=== PATIENT | female | born 1930 | race Two or more races ===

== ENCOUNTER 2018-03-21 20:57 | Inpatient (IN) | payer MEDICARE, BC ==
[~2018-03-21] VITALS: Ht 170.2 cm; Wt 74.4 kg
--- NOTE | 2018-03-21 21:08 | NUR ---
PT BIB [facility] WITH A C/O SLIP AND FALL AT HOME. PT WAS WALKING IN HER SOCKS AND SLIPED. PT'S CALLED 911 AND PT REC'D 4MG MORPHINE AND 4MG ZOFAN GIVEN VIA 20G IV RECREATION INSTRUCTOR. PT TRIAGED IN BED #9. PT IS ON THE MONITOR AND CONTINUOUS PULSE OX.
[2018-03-21] MEDS ORDERED: METF-440 PO (21:14)
[2018-03-21] MEDS ORDERED: COZAR PO (21:15)
[2018-03-21] MEDS ORDERED: ASPI-605 PO (21:17)
[2018-03-21] MEDS ORDERED: [UNRECOGNIZED DRUG - OTHER] PO (21:17)
[2018-03-21] MEDS ORDERED: IV NS 0.9% 500 ML BAG IV ONE (21:30)
[2018-03-21 21:33] LABS: BASOPHILS % (AUTO) 0.3 % (0.0-2.0); EOSINOPHILS % (AUTO) 6.7 % (0.0-6.0); HEMATOCRIT 38 % (33-45); LYMPHOCYTES # (AUTO) 1.1 /CMM (0.8-4.8); LYMPHOCYTES % (AUTO) 22.1 % (20.0-44.0); MEAN CORPUSCULAR HGB CONC 34 g/dl (31.0-36.0); MEAN CORPUSCULAR VOLUME 93 fL (82-100); MONOCYTES # (AUTO) 0.6 /CMM (0.1-1.30); MONOCYTES % (AUTO) 12.2 % (2.0-12.0); NEUTROPHILS # (AUTO) 3.2 /CMM (1.8-8.9); NEUTROPHILS % (AUTO) 58.7 % (43.0-81.0); PLATELET COUNT (AUTO) 185 /CMM (150-450); RED BLOOD CELL COUNT(AUTO) 4.12 MIL/uL (4.0-5.2); WHITE BLOOD COUNT (AUTO) 5.2 K/uL (4.3-11.0)
--- NOTE | 2018-03-21 21:38 | NUR ---
PT'S ARRIVED AND IS AT THE BEDSIDE.
[2018-03-21 21:43] LABS: CALCIUM, SERUM 8.9 mg/dL (8.5-10.1); CARBON DIOXIDE 25 mmol/L (21-32); CHLORIDE 104 mmol/L (98-107); GLUCOSE 209 mg/dL (74-106); POTASSIUM 4.4 mmol/L (3.5-5.1); SODIUM SERUM 136 mmol/L (136-145); UREA NITROGEN, BLOOD 25 mg/dL (7-18)
[2018-03-21 21:48] LABS: INR 0.99 (0.85-1.15)
[2018-03-21 21:49] LABS: ALANINE AMINOTRANSFERASE 14 U/L (12-78); ALBUMIN 3.2 g/dL (3.4-5.0); ALKALINE PHOSPHATASE 71 U/L (46-116); ASPARTATE AMINOTRANSFERASE 12 U/L (15-37); BILIRUBIN,DIRECT 0.1 mg/dL (0.0-0.2); BILIRUBIN,TOTAL 0.4 mg/dL (0.2-1.0); TOTAL PROTEIN, SERUM 7.2 g/dL (6.4-8.2)
--- NOTE | 2018-03-21 22:00 | NUR ---
CXR IN PROGRESS AT THE BEDSIDE.
[2018-03-21] MEDS ORDERED: ONDANSETRON HCL/PF 4 MG/2 ML VIAL ONE (22:10)
[2018-03-21] MEDS ORDERED: MORPHINE SULFATE INJ 4 MG/ML DISP.SYRIN ONE ×2 (22:11→23:02)
--- NOTE | 2018-03-21 22:12 | NUR ---
CALLED [employer] TYSON, FARM TECHNICIAN WAS PAGED.
[2018-03-21] MEDS ORDERED: ONDANSETRON HCL/PF 4 MG/2 ML VIAL IV ONE (22:30)
[2018-03-21] MEDS ORDERED: MORPHINE SULFATE INJ 4 MG/ML DISP.SYRIN IV ONE (22:30)
[2018-03-21] MEDS ORDERED: MORPHINE SULFATE INJ 2 MG/ML DISP.SYRIN IV ONE (23:00)
--- NOTE | 2018-03-21 23:16 | NUR ---
CALLED [employer] (Closed) SKEIN YARN DYER WAS PAGED.
[2018-03-21 23:45] VITALS: BP 195/89
[2018-03-22] MEDS ORDERED: ONDANSETRON HCL/PF 4 MG/2 ML VIAL IVP PRN
[2018-03-22] MEDS ORDERED: Z GUARD REMEDY 2 OZ OINT TP PRN
[2018-03-22] MEDS ORDERED: HYDROCODONE/APAP 5/325MG 1 EACH TABLET PO PRN
[2018-03-22] MEDS ORDERED: ZOLPIDEM TARTRATE 5 MG TABLET PO PRN
[2018-03-22] MEDS ORDERED: DEXTROSE 50%-WATER 50 ML DISP.SYRIN IV PRN
[2018-03-22] MEDS ORDERED: ACETAMINOPHEN 325 MG TABLET PO PRN
[2018-03-22] MEDS ORDERED: MAGNESIUM HYDROXIDE 30 ML UDC PO PRN
[2018-03-22 00:15] VITALS: BP 195/89
--- NOTE | 2018-03-22 00:15 | NUR ---
MS RN ADMIN NOTES PT WAS BROUGHT UP FROM ER VIA GURNEY. A/O X3, LEGALLY BLIND AND [place]. NO SIGNS OF SOB OR DISTRESS, BREATHING EVENLY AND UNLABORED ON RA, PLACED NC FOR COMFORT. BURLESON CATHETER IS INTACT AND DRAINING. IV ACCESS IS INTACT AND PATENT. RIGHT LEG IS ROTATED SLIGHTLY INWARD. PT IS UNABLE TO MOVE RIGHT LIGHT AND REFUSES TO BE TURNED FOR A SKIN ASSESSMENT. STRONG PEDAL PULSES, PT HAS SENSATION IN LOWER EXTREMITY, STRONG PEDAL PULSES AND ABLE TO WIGGLE TOES. COMPLAINTS OF PAIN 5/10 AT THIS TIME,ADVISED PATIENT OF THE PAIN CONTROL REGIMEN AVAILABLE FOR HER. ORIENTED PT TO CALL LIGHT. BED IS IN LOW AND LOCKED POSITION, CALL LIGHT WITHIN REACH. WILL CONTINUE TO MONITOR
[2018-03-22] MEDS: BLOOD SUGAR DIAGNOSTIC 1 EACH STRIP IN SCH ×5 (00:59→23:39)
[2018-03-22] MEDS: MORPHINE SULFATE INJ 4 MG/ML DISP.SYRIN IV PRN ×4 (01:24→18:25)
[2018-03-22] MEDS: hydrALAZINE HCL IV 20 MG VIAL IV PRN (03:23)
[2018-03-22 06:32] LABS: BASOPHILS % (AUTO) 0.2 % (0.0-2.0); HEMATOCRIT 38 % (33-45); HEMOGLOBIN 12.9 g/dL (11.5-14.8); LYMPHOCYTES % (AUTO) 13.6 % (20.0-44.0); MEAN CORPUSCULAR HGB CONC 34 g/dl (31.0-36.0); MEAN CORPUSCULAR VOLUME 94 fL (82-100); MONOCYTES # (AUTO) 0.7 /CMM (0.1-1.30); MONOCYTES % (AUTO) 8.7 % (2.0-12.0); NEUTROPHILS # (AUTO) 5.8 /CMM (1.8-8.9); NEUTROPHILS % (AUTO) 76.5 % (43.0-81.0); PLATELET COUNT (AUTO) 179 /CMM (150-450); RDW COEFFICIENT OF VARIATION 13.8 (11.5-15.0); RED BLOOD CELL COUNT(AUTO) 4.06 MIL/uL (4.0-5.2); WHITE BLOOD COUNT (AUTO) 7.6 K/uL (4.3-11.0)
[2018-03-22 06:37] LABS: CHOLESTEROL 188 mg/dL (<200); HDL CHOLESTEROL 43 mg/dL (40-60); LDL 136 mg/dL (0-99); TRIGLYCERIDES 48 mg/dL (30-150)
[2018-03-22 06:43] LABS: CALCIUM, SERUM 8.6 mg/dL (8.5-10.1); CARBON DIOXIDE 26 mmol/L (21-32); CHLORIDE 102 mmol/L (98-107); CREATININE 0.8 mg/dL (0.6-1.3); GLUCOSE 199 mg/dL (74-106); MAGNESIUM 1.8 mg/dL (1.8-2.4); POTASSIUM 4.2 mmol/L (3.5-5.1); SODIUM SERUM 136 mmol/L (136-145); UREA NITROGEN, BLOOD 18 mg/dL (7-18)
--- NOTE | 2018-03-22 06:51 | NUR ---
MS RN CLOSING NOTE PT IS IN BED AWAKE AND ALERT. PT HAS NOW BECOME FRUSTRATED AND FORGETFUL THIS MORNING. SHE REFUSED ACCU-CHECK AFTER MANY ATTEMPTS THEN FORGOT ABOUT THE ATTEMPTS I HAD MADE PRIOR. PT STATES SHE IS IN PAIN, I OFFERED TO GET HER THE MORPHINE FOR HER AND SHE REFUSED IT STATING THAT SHE DOESN'T KNOW WHY SHE IS HERE AND IS UPSET ASKING WHEN IS THE DOCTOR GOING TO COME SEE HER. PENDING ORTHO CONSULT. IV ACCESS IS INTACT AND PATENT WITH FLUIDS INFUSING. BURLESON CATHETER IS INTACT AND DRAINING. ALL NEEDS WERE ANTICIPATED AND MET. BED IS IN LOW AND LOCKED POSITION, CALL LIGHT WITHIN REACH. WILL ENDORSE TO DAYSHIFT.
--- NOTE | 2018-03-22 07:32 | NUR ---
MS/RN OPENING NOTES RECEIVED PATIENT IN BED AWAKE, ALERT AND ORIENTED X3. ABLE TO MAKE NEEDS KNOWN, NO C/O PAIN OR DISCOMFORTS VOICED AT THIS TIME. ON 02 VIA N/C AT 2LPM, RESPIRATION REGULAR AND UNLABORED, NO SOB NOTED. IV ACCESS ON RIGHT FA G #20 INTACT AND PATENT., IVF OF NS @ 75ML/HR INFUSING WITH NO S/S OF INFILTRATION NOTED. BURLESON IN PLACE AND ACTIVELY DRAINING CLEAR YELLOW URINE TO BEDSIDE URINARY BAG. BED IN LOW/LOCKED POSITION WITH SIDE RAILS UP X2. CALL LIGHT WITHIN REACH. WILL CONTINUE TO MONITOR.
[2018-03-22 08:00] VITALS: BP 156/86
[2018-03-22] MEDS: ASPIRIN EC 81 MG TABLET.DR PO SCH (09:00)
[2018-03-22] MEDS ORDERED: LOSARTAN POTASSIUM 50 MG TABLET PO SCH (09:00)
[2018-03-22] MEDS: VALSARTAN 80 MG TABLET PO SCH (09:30)
--- NOTE | 2018-03-22 09:58 | NUR ---
RN NOTES PATIENT PULLED HER IV LINE ON RFA WITH SMALL AMOUNT OF BLEEDING NOTED, PRESSURE GAUZE APPLIED AND TAPED. NEW IV LINE INSERTED ON RIGHT WRIST G#22, TAPED AND SECURED THEN IVF OF NS @ 75ML/HR CONTINUED. WILL CONTINUE TO MONITOR.
--- NOTE | 2018-03-22 10:56 | NUR ---
RN NOTES PT C/O PULLING AND ACHING PAIN ON RIGHT HIP 06/16, PRN MORPHINE 2MG IVP GIVEN ORDERED. WILL CONTINUE TO MONITOR.
--- NOTE | 2018-03-22 11:28 | NUR ---
RN NOTES DR SOMERS CAME TO ASSESS AND EVALUATE PT, WITH ORDER TO CHECK BP 148/72MMHG AND GIVE ANOTHER EXTRA DOSE OF MORPHINE 2MG IVP BECAUSE HE WILL TRY TO MANUALLY FIX PT'S RIGHT HIP.
[2018-03-22] MEDS ORDERED: MORPHINE SULFATE INJ 4 MG/ML DISP.SYRIN IV ONE (11:30)
--- NOTE | 2018-03-22 12:45 | NUR ---
RN NOTES PT'S RIGHT HIP DISLOCATION WASN'T FIXED BY DR SOMERS MANUALLY. ORDERED TO OBTAIN CONSENT FOR CLOSED VS OPEN REDUCTION OF RIGHT HIP ARTHROPLASTY DISLOCATION. PROCEDURE EXPLAINED TO PT AND WITH VERBALIZATION OF UNDERSTANDING. CONSENT SIGNED AND FILED ON CHART.
[2018-03-22] MEDS: INSULIN REGULAR, HUMAN 100 UNIT/ML 3 ML VIAL SQ PRN (12:49)
--- NOTE | 2018-03-22 12:49 | NUR ---
RN NOTES Patient noted with BS of 139mgdl, refused insulin coverage because pt will have procedure today and she's on npo. Will continue to monitor
--- NOTE | 2018-03-22 13:41 | NUR ---
RN NOTES PATIENT TRANSPORTED TO O.R. BY SURGERY NURSE AT 1330 VIA HER BED FOR CLOSED VS OPEN REDUCTION OF RIGHT HIP ARTHROPLASTY DISLOCATION IN NO ACUTE SIGNS OF DISTRESS.
[2018-03-22 14:35] VITALS: BP 150/78
--- NOTE | 2018-03-22 14:39 | NUR ---
RN NOTES PATIENT RETURNED FROM O.R. S/P CLOSED REDUCTION OF RIGHT TOTAL HIP ARTHROPLASTY DISLOCATION BY DR BETANCUR WITH ORDER TO RESUMED ALL PRE-OP MEDS AND DC HOME WHEN STABLE. PT AWAKE AND ALERT WITH NO C/O PAIN AT THIS TIME. PT RETURNED WITH KNEE IMMOBILIZER AND ABDUCTOR PILLOW. WILL CONTINUE TO MONITOR.
--- NOTE | 2018-03-22 15:05 | NUR ---
RN NOTES MARIELLE CHAPMAN REPORTED THAT PT JUST RETURNED [facility]. S/P CLOSED REDUCTION OF RIGHT HIP DISLOCATION. ASKED IF PT CAN START ON DIABETIC DIET AND SAID OK. SAME SAID THAT I FOLLOWED-UP PT'S PHARMACY REGARDING HOME MED SYNTHROID AND SAID THAT PT TAKE SYNTHROID 50MCG DAILY.
--- NOTE | 2018-03-22 15:14 | NUR ---
ADDENDUM; V/S CHECKED S/P: BP 150/78, P 68, R 18, T 98F AND SP02 98%. WILL CONTINUE TO MONITOR.
--- NOTE | 2018-03-22 17:00 | NUR ---
RN NOTES PT IS WEIGHT BEARING TOLERATED ORDERED BY DR SOMERS. PT SEEM CONFUSED AND RESTLESS, PHYSICAL THERAPY EVALUATION UN-ABLE TO DO, PATIENT REFUSING DESPITE ENCOURAGEMENT FROM PT'S SON. PHYSICAL THERAPIST WILL TRY TO DO IT TOMORROW. WILL CONTINUE TO MONITOR.
--- NOTE | 2018-03-22 18:06 | NUR ---
RN NOTES PATIENT REFUSED BLOOD SUGAR MONITORING AT 1800 DESPITE EXPLAINING THE RISKS OF HAVING IT NOT CHECKED. WHEN ASKED TO TRY AGAIN, SHE BECAME AGITATED AND SAID TO GO AWAY. WILL CONTINUE TO MONITOR PT'S BEHAVIOR.
--- NOTE | 2018-03-22 18:26 | NUR ---
RN NOTES PATIENT NOTED RESTLESS AND GRIMACING IN PAIN, PRN MORPHINE 2MG IVP GIVEN ORDERED. WILL CONTINUE TO MONITOR.
--- NOTE | 2018-03-22 18:43 | NUR ---
MS/RN CLOSING NOTES PATIENT IN BED AWAKE AND RESTING @ MODERATE HIGH BACKREST. A/O X2-3. CONFUSED, FORGETFUL AND RESTLESS AT THIS TIME.TRYING TO REMOVE IMMOBILIZER, LEG ABDUCTOR AND IV LINE, SAME REFUSING ANY CARE. LONG WALL SHEAR OPERATOR HALIMA MADE AWARE WITH ORDER TO PUT B/L SOFT RESTRAINTS. PT'S SON CALLED AND INFORMED THAT PT WAS PLACED ON RETRAINS AND SAID OK. PT ON 02 VIA N/C AT 2LPM, RESPIRATION EVEN AND UNLABORED, NO SOB NOTED. IV ACCESS ON RIGHT WRIST G #22 INTACT AND PATENT., IVF OF NS @ 75ML/HR INFUSING WITH NO S/S OF INFILTRATION NOTED. BURLESON IN PLACE AND ACTIVELY DRAINING CLEAR YELLOW URINE TO BEDSIDE URINARY BAG. HOB KEPT ELEVATED. BED IN LOW/LOCKED POSITION WITH SIDE RAILS UP X2. CALL LIGHT WITHIN REACH. WILL ENDORSE TO WINDOWS SYSTEMS ENGINEER NURSE FOR DOROTHY..
[2018-03-22 19:22] LABS: APPEARANCE,URINE CLEAR (CLEAR); BILIRUBIN,URINE NEGATIVE (NEGATIVE); BLOOD, URINE 3+ Ery/uL (NEGATIVE); COLOR,URINE YELLOW (YELLOW); KETONES,URINE NEGATIVE (NEGATIVE); LEUKOCYTE ESTERASE ,URINE 1+ (NEGATIVE); NITRITE, URINE NEGATIVE (NEGATIVE); PH,URINE 5.5 (5.0-8.0); PROTEIN,URINE NEGATIVE (NEGATIVE); UGLUCOSE NEGATIVE (NEGATIVE); UROBILINOGEN,URINE 0.2 EU/dL (0.2)
--- NOTE | 2018-03-22 19:30 | NUR ---
RN NOTES RECEIVED PT. AWAKE ON BED, A/OX1, ON BILATERAL SOFT WRIST RESTRAINTS, S/ LEFT HIP ORIF, DRESSING ON THE LEFT HIP DRY AND INTACT, IMMOBILIZER IN PLACE, F/C DRAINING CLEAR YELLOW URINE NO PAIN NOTED, NO SOB, CALL LIGHT WITHIN REACH, SIDERAILSUPX2 CONTINUE TO MONITOR Addendum: 03/23/18 at 0413 by CARLOS MALDONADO RN WRONG PATIENT
--- NOTE | 2018-03-22 19:30 | NUR ---
RN NOTES RECEIVED PT. AWAKE ON BED, A/OX2, ON BILATERAL SOFT WRIST RESTRAINTS, F/C DRAINING CLEAR YELLOW URINE, IV FLUID NS RUNNING @ 75ML/HR, WITH ABDUCTION PILLOW, RIGHT LEG WITH IMMOBILIZER, S/P CLOSED HIP REDUCTION, SIDERAILSUPX2, CALL LIGHT WITHIN REACH, CONTINUE TO MONITOR
[2018-03-22 20:00] VITALS: BP 165/81
[2018-03-22 20:46] LABS: BACTERIA,URINE Moderate /HPF (None Seen); SQUAMOUS EPITHELIAL CELL,UR Few /HPF (None Seen)
[2018-03-22] MEDS: IV NS 0.9% 1,000 ML IV PRN (23:39)
[2018-03-22] MEDS: OLANZAPINE 5 MG TABLET PO SCH (23:46)
--- NOTE | 2018-03-22 23:49 | NUR ---
RN NOTES BLOOD SUGAR-149 NO COVERAGE WAS GIVEN, PT REFUSED TO EAT OR DRINK
--- NOTE | 2018-03-23 04:56 | NUR ---
PATIENT REFUSED EKG; RN NOTIFIED. Addendum: 03/23/18 at 0456 by AMRTINEZ SMITH RT Amended: Links added.
--- NOTE | 2018-03-23 06:00 | NUR ---
RN NOTES BLOOD SUGAR-146, NO COVERAGE GIVEN PT REFUSED TO EAT OR DRINK
[2018-03-23] MEDS: MORPHINE SULFATE INJ 4 MG/ML DISP.SYRIN IV PRN (06:22)
[2018-03-23] MEDS: BLOOD SUGAR DIAGNOSTIC 1 EACH STRIP IN SCH ×4 (06:22→23:56)
--- NOTE | 2018-03-23 06:30 | NUR ---
RN NOTES IV GOT INFILTRATED NEW IV LINE INSERTED ON THE LEFT FOREARM... PT. COMPLAINED OF RIGHT HIP PAIN-MORPHINE 2 MG IV GIVEN ORDERED, V/S STABLE
[2018-03-23 06:57] LABS: BASOPHILS % (AUTO) 0.3 % (0.0-2.0); EOSINOPHILS % (AUTO) 2.1 % (0.0-6.0); HEMATOCRIT 39 % (33-45); HEMOGLOBIN 13.4 g/dL (11.5-14.8); LYMPHOCYTES # (AUTO) 0.8 /CMM (0.8-4.8); LYMPHOCYTES % (AUTO) 10.7 % (20.0-44.0); MEAN CORPUSCULAR HGB CONC 34 g/dl (31.0-36.0); MEAN CORPUSCULAR VOLUME 94 fL (82-100); MONOCYTES % (AUTO) 12.5 % (2.0-12.0); NEUTROPHILS # (AUTO) 5.6 /CMM (1.8-8.9); NEUTROPHILS % (AUTO) 74.4 % (43.0-81.0); PLATELET COUNT (AUTO) 168 /CMM (150-450); RDW COEFFICIENT OF VARIATION 13.8 (11.5-15.0); RED BLOOD CELL COUNT(AUTO) 4.19 MIL/uL (4.0-5.2); WHITE BLOOD COUNT (AUTO) 7.6 K/uL (4.3-11.0)
[2018-03-23 07:18] LABS: CALCIUM, SERUM 8.9 mg/dL (8.5-10.1); CARBON DIOXIDE 23 mmol/L (21-32); CHLORIDE 103 mmol/L (98-107); CREATININE 0.8 mg/dL (0.6-1.3); GLUCOSE 158 mg/dL (74-106); MAGNESIUM 1.8 mg/dL (1.8-2.4); PHOSPHORUS 3.3 mg/dL (2.5-4.9); POTASSIUM 4.4 mmol/L (3.5-5.1); SODIUM SERUM 136 mmol/L (136-145); THYROID STIMULATING HORMONE 0.816 uIU/mL (0.358-3.74); UREA NITROGEN, BLOOD 13 mg/dL (7-18)
[2018-03-23 08:00] VITALS: BP 172/92
--- NOTE | 2018-03-23 08:00 | NUR ---
MS RN RECEIVED ON BED, AWAKE,CONFUSED,NOT IN ANY FORM OF DISTRESS, RESPIRATIONS EVEN AND UNLABORED,NO SOB NOTED, LUNGS ARE CLEAR,ABDOMEN SOFT,POSITIVE BOWEL SOUNDS,DENIES PAIN AT THIS TIME, BILAERAL RESTARIN ON FOR COMFORT AND W/ SITTER AT THIS TIME.
[2018-03-23] MEDS ORDERED: LOSARTAN POTASSIUM 50 MG TABLET PO SCH (09:00)
--- NOTE | 2018-03-23 09:30 | NUR ---
MS BARAHONA BREAKFAST SERVED,DUE MEDS GIVEN,TOLERATED WELL.
[2018-03-23] MEDS: OLANZAPINE 5 MG TABLET PO SCH ×2 (10:01→16:58)
[2018-03-23] MEDS: VALSARTAN 80 MG TABLET PO SCH (10:01)
[2018-03-23] MEDS: ASPIRIN EC 81 MG TABLET.DR PO SCH (10:01)
[2018-03-23] MEDS: LEVOTHYROXINE SODIUM 50 MCG TABLET PO SCH (10:03)
[2018-03-23 16:00] VITALS: BP 172/92
--- NOTE | 2018-03-23 16:00 | NUR ---
MS RN WAS SEEN BY DR. ZHEN Leblanc/ ORDERS MADE AND CARRIED OUT.
[2018-03-23] MEDS ORDERED: OLANZAPINE 2.5 MG TABLET PO PRN (16:30)
[2018-03-23] MEDS: IV NS 0.9% 1,000 ML IV PRN (16:57)
[2018-03-23] MEDS: CEFTRIAXONE 1 G in IV NS 0.9% 50 ML IV SCH (17:40)
[2018-03-23] MEDS: INSULIN REGULAR, HUMAN 100 UNIT/ML 3 ML VIAL SQ PRN (18:21)
--- NOTE | 2018-03-23 18:49 | NUR ---
MS RN ON BED, NO DISTRESS NOTED, ALL NEEDS ATTENDED.
--- NOTE | 2018-03-23 19:25 | NUR ---
MS RN NOTES RECEIVED PT IN BED, AWAKE, A/O X 2, VERBALLY RESPONSIVE. WITH ON AND OFF EPISODES OF SCREAMING AND AGITATION. SON AT BEDSIDE AT THIS TIME, AND SANKET POLK AT BEDSIDE. BILATERAL WRIST SOFT RESTRAINT IN PLACE, FOR SAFETY, SKIN CHECK DONE. NO DISTRESS, NO SOB NOTED. RESPIRATION IS EVEN AND UNLABORED. ABDOMEN IS SOFT AND NON DISTENDED. FC IS INTACT AND PATENT, DRAINING WELL WITH YELLOW URINE, NO HEMATURIA NOTED. DENIES PAIN AT THIS TIME. IV SITE ON LFA INTACT AND PATENT, IVF INFUSING WELL. NO S/S OF HYPO/ HYPERGLYCEMIA NOTED. ALL NEEDS ATTENDED AND MET. SAFETY PRECAUTIONS OBSERVED. WILL CONT TO MONITOR.
[2018-03-23 20:00] VITALS: BP 135/103
[2018-03-24] MEDS: INSULIN REGULAR, HUMAN 100 UNIT/ML 3 ML VIAL SQ PRN ×3 (00:06→18:01)
[2018-03-24] MEDS: BLOOD SUGAR DIAGNOSTIC 1 EACH STRIP IN SCH ×4 (05:40→21:07)
[2018-03-24] MEDS: IV NS 0.9% 1,000 ML IV PRN (06:17)
--- NOTE | 2018-03-24 06:21 | NUR ---
TEXTED DR. MARIE FOR MRI APPROVAL.
--- NOTE | 2018-03-24 06:30 | NUR ---
MS RN NOTES PT IN BED, AWAKE, A/O X 2, VERBALLY RESPONSIVE. WITH ON AND OFF EPISODES OF SCREAMING AND AGITATION.SANKET POLK AT BEDSIDE. BILATERAL WRIST SOFT RESTRAINT IN PLACE, FOR SAFETY, SKIN CHECK DONE. NO DISTRESS, NO SOB NOTED. RESPIRATION IS EVEN AND UNLABORED. ABDOMEN IS SOFT AND NON DISTENDED. FC IS INTACT AND PATENT, DRAINING WELL WITH YELLOW URINE, NO HEMATURIA NOTED. DENIES PAIN AT THIS TIME. IV SITE ON LFA INTACT AND PATENT, IVF INFUSING WELL. NO S/S OF HYPO/ HYPERGLYCEMIA NOTED. ALL NEEDS ATTENDED AND MET. SAFETY PRECAUTIONS OBSERVED. WILL ENDORSE TO NEXT SHIFT FOR DOROTHY.
[2018-03-24 06:56] LABS: BASOPHILS % (AUTO) 0.1 % (0.0-2.0); EOSINOPHILS % (AUTO) 1.4 % (0.0-6.0); HEMATOCRIT 39 % (33-45); LYMPHOCYTES % (AUTO) 11.3 % (20.0-44.0); MEAN CORPUSCULAR HGB CONC 34 g/dl (31.0-36.0); MEAN CORPUSCULAR VOLUME 94 fL (82-100); MONOCYTES # (AUTO) 1.3 /CMM (0.1-1.30); NEUTROPHILS # (AUTO) 6.5 /CMM (1.8-8.9); NEUTROPHILS % (AUTO) 73.2 % (43.0-81.0); PLATELET COUNT (AUTO) 158 /CMM (150-450); RDW COEFFICIENT OF VARIATION 14.1 (11.5-15.0); RED BLOOD CELL COUNT(AUTO) 4.11 MIL/uL (4.0-5.2); WHITE BLOOD COUNT (AUTO) 8.9 K/uL (4.3-11.0)
--- NOTE | 2018-03-24 07:10 | NUR ---
RN OPEN NOTES RECEIVED REPORT FROM SHINGLE BOLT CUTTER NURSE AT BEDSIDE. PATIENT IS IN BED, AWAKE AND ALERT. FAROESE SPEAKING. PATIENT HAS NO IV SITE DUE TO PULLING IT OUT MULTIPLE TIME. NO SIGNS AND SYMPTOMS OF DISTRESS OR PAIN. BED IN LOW POSITION, LOCKED AND TWO SIDE RAILS ARE UP. CALL LIGHT WITHIN REACH FOR SAFETY. WILL CONTINUE TO ASSESS AND MONITOR PATIENT THROUGHOUT MY SHIFT.
[2018-03-24 07:17] LABS: CALCIUM, SERUM 8.5 mg/dL (8.5-10.1); CARBON DIOXIDE 23 mmol/L (21-32); CHLORIDE 105 mmol/L (98-107); CREATININE 0.7 mg/dL (0.6-1.3); GLUCOSE 163 mg/dL (74-106); MAGNESIUM 1.7 mg/dL (1.8-2.4); PHOSPHORUS 2.4 mg/dL (2.5-4.9); POTASSIUM 3.8 mmol/L (3.5-5.1); SODIUM SERUM 139 mmol/L (136-145); UREA NITROGEN, BLOOD 12 mg/dL (7-18)
[2018-03-24 08:00] VITALS: BP 164/99
[2018-03-24] MEDS: OLANZAPINE 5 MG TABLET PO SCH (09:00)
[2018-03-24] MEDS: LEVOTHYROXINE SODIUM 50 MCG TABLET PO SCH (09:23)
[2018-03-24] MEDS: VALSARTAN 80 MG TABLET PO SCH (09:24)
[2018-03-24] MEDS: Magnesium 1GM/D5W 100ML PREMIX 100 ML IV SCH ×2 (09:24→11:10)
[2018-03-24] MEDS: ASPIRIN EC 81 MG TABLET.DR PO SCH (09:24)
[2018-03-24] MEDS ORDERED: *INSULIN REGULAR(HUMULIN R)HUM 100 UNIT/ML VIAL SQ PRN (10:30)
[2018-03-24] MEDS ORDERED: DEXTROSE 50%-WATER 50 ML DISP.SYRIN IV PRN (10:30)
[2018-03-24] MEDS ORDERED: MAGNESIUM HYDROXIDE 30 ML UDC PO PRN (11:00)
--- NOTE | 2018-03-24 12:30 | NUR ---
FAMILY MEMBER FED PATIENT PRIOR TO BLOOD SUGAR CHECK. REFUSING INSULIN
[2018-03-24] MEDS ORDERED: K PHOS NEUTRAL 250 MG TABLET PO ONE (14:00)
[2018-03-24] MEDS ORDERED: NEUTRA PHOS 1 POWD.PACKET PO ONE (15:00)
--- NOTE | 2018-03-24 15:00 | NUR ---
patient unable to swallow phos pill. changed to powder
[2018-03-24] MEDS: hydrALAZINE HCL IV 20 MG VIAL IV PRN (15:28)
--- NOTE | 2018-03-24 15:32 | NUR ---
165/100 BLOOD PRESSURE. HYDRALAZINE ADMINISTERED ORDERED
[2018-03-24] MEDS: CEFTRIAXONE 1 G in IV NS 0.9% 50 ML IV SCH (16:46)
--- NOTE | 2018-03-24 18:19 | NUR ---
PATIENT IS AGITATED. HALIMA NOTIFIED. PENDING REPLIED
[2018-03-24] MEDS ORDERED: HALOPERIDOL 1 MG TABLET PO PRN (19:00)
[2018-03-24 19:05] VITALS: BP 165/100
--- NOTE | 2018-03-24 19:20 | NUR ---
RN CLOSING NOTES REPORT GAVE TO FRYER LINE HELPER NURSE. PATIENT IS IN BED, AWAKE. FAMILY AT BEDSIDE. NO SIGNS AND SYMPTOMS OF DISTRESS. BED IN LOW POSITION, LOCKED AND TWO SIDE RAILS ARE UP. CALL LIGHT WITH IN REACH FOR SAFETY. ALL NURSING CARE ANTICIPATED AND PROVIDED. PATIENT KEPT CLEAN, DRY AND SAFE.
--- NOTE | 2018-03-24 19:27 | NUR ---
RN OPENING NOTES PT AWAKE AND RESTING IN BED. FAMILY AT BEDSIDE. 1:1 SITTER AT BEDSIDE. PT CONFUSED. NO APPARENT S/S OF PAIN, DISTRESS OR SOB AT THIS TIME. PT HAS BILATERAL SOFT WRIST RESTRAINTS. NO DISCOMFORT NOTED. PT HAS A BURLESON CATHETER INTACT AND DRAINING WELL. PT HAS A LEFT FOREARM IV #22 INTACT AND PATENT. SAFETY PRECAUTIONS IN PLACE, BED IN LOWEST LOCKED POSITION, X3 SIDE RAILS UP. CALL LIGHT WITHIN REACH. WILL CONTINUE TO MONITOR.
[2018-03-24 20:00] VITALS: BP_SYST 165; BP_DIAS 100; BP_DIAS 88
--- NOTE | 2018-03-24 20:00 | NUR ---
RN NOTES PT REFUSED HYDRALAZINE FOR BP OF 165/88. DISCUSSED WITH FAMILY. FAMILY STATED THAT THE PT'S BP IS HIGHER IN THE HOSPITAL AND DR OFFICES THAN AT HOME. INFORMED FAMILY THAT I WOULD RECHECK THE PTS BLOOD PRESSURE LATER ON IN THE EVENING AND ASSESS AT THAT POINT.
--- NOTE | 2018-03-24 21:26 | NUR ---
RN NOTES PT REFUSED TO HAVE HER BLOOD PRESSURE RECHECKED. PT REMAINS CONFUSED. WILL CONTINUE TO MONITOR AND MAKE ANOTHER ATTEMPT DURING THE EVENING.
--- NOTE | 2018-03-25 | NUR ---
RN NOTES PT REFUSED TO HAVE BLOOD PRESSURE TAKEN. EXPLAINED TO HER THE IMPORTANCE OF MONITORING HER VITAL SIGNS MEASURED.
[2018-03-25] MEDS: INSULIN REGULAR, HUMAN 100 UNIT/ML 3 ML VIAL SQ PRN ×2 (06:18→18:18)
[2018-03-25] MEDS: BLOOD SUGAR DIAGNOSTIC 1 EACH STRIP IN SCH ×4 (06:20→21:48)
--- NOTE | 2018-03-25 06:40 | NUR ---
RN CLOSING NOTES PT RESTING IN BED. 1:1 SITTER AT BEDSIDE. PT CONFUSED. NO APPARENT S/S OF PAIN, DISTRESS OR SOB OVERNIGHT. PT HAS ORDER FOR BILATERAL SOFT WRIST RESTRAINTS IS NOT RESTRAINED AT THIS TIME. PT HAS A BURLESON CATHETER INTACT AND DRAINING WELL. PT HAS A LEFT FOREARM IV #22 INTACT AND PATENT. SAFETY PRECAUTIONS IN PLACE, BED IN LOWEST LOCKED POSITION, X3 SIDE RAILS UP. CALL LIGHT WITHIN REACH. WILL ENDORSE TO DAY SHIFT NURSE FOR CONTINUITY OF CARE.
[2018-03-25 07:00] LABS: HEMATOCRIT 37 % (33-45); HEMOGLOBIN 12.5 g/dL (11.5-14.8); LYMPHOCYTES # (AUTO) 0.5 /CMM (0.8-4.8); LYMPHOCYTES % (AUTO) 4.6 % (20.0-44.0); MEAN CORPUSCULAR HGB CONC 34 g/dl (31.0-36.0); MEAN CORPUSCULAR VOLUME 94 fL (82-100); MONOCYTES # (AUTO) 1.2 /CMM (0.1-1.30); NEUTROPHILS # (AUTO) 9.8 /CMM (1.8-8.9); NEUTROPHILS % (AUTO) 85.4 % (43.0-81.0); PLATELET COUNT (AUTO) 147 /CMM (150-450); RDW COEFFICIENT OF VARIATION 14.1 (11.5-15.0); RED BLOOD CELL COUNT(AUTO) 3.96 MIL/uL (4.0-5.2); WHITE BLOOD COUNT (AUTO) 11.5 K/uL (4.3-11.0)
[2018-03-25 07:10] LABS: CALCIUM, SERUM 8.2 mg/dL (8.5-10.1); CARBON DIOXIDE 22 mmol/L (21-32); CHLORIDE 103 mmol/L (98-107); CREATININE 0.8 mg/dL (0.6-1.3); GLUCOSE 255 mg/dL (74-106); MAGNESIUM 1.3 mg/dL (1.8-2.4); PHOSPHORUS 3.2 mg/dL (2.5-4.9); POTASSIUM 3.8 mmol/L (3.5-5.1); SODIUM SERUM 136 mmol/L (136-145); UREA NITROGEN, BLOOD 16 mg/dL (7-18)
--- NOTE | 2018-03-25 07:28 | NUR ---
RN OPEN NOTES RECEIVED REPORT FROM SILK OPENER NURSE AT BEDSIDE. PATIENT IS IN BED, AWAKE. NO SIGNS AND SYMPTOMS OF DISTRESS OR PAIN. BED IN LOW POSITION, LOCKED AND TWO SIDE RAILS ARE UP. CALL LIGHT WITHIN REACH FOR SAFETY. WILL CONTINUE TO ASSESS AND MONITOR PATIENT THROUGHOUT MY SHIFT.
--- NOTE | 2018-03-25 08:15 | NUR ---
MARIELLE VARGHESE MADE AWARE OF LOW MAG 1.3
[2018-03-25] MEDS: ASPIRIN EC 81 MG TABLET.DR PO SCH (08:37)
[2018-03-25] MEDS: LEVOTHYROXINE SODIUM 50 MCG TABLET PO SCH (08:37)
[2018-03-25] MEDS: VALSARTAN 80 MG TABLET PO SCH (08:38)
[2018-03-25] MEDS: Magnesium 1GM/D5W 100ML PREMIX 100 ML IV SCH ×4 (11:27→14:48)
--- NOTE | 2018-03-25 12:33 | NUR ---
BLOOD SUGAR 163. PATIENT REFUSING TO EAT LUNCH. INSULIN NOT GIVEN
[2018-03-25] MEDS ORDERED: BISACODYL SUPP (10 MG) 10 MG/SUPP.RECT SUPP.RECT RC STA (12:57)
[2018-03-25] MEDS ORDERED: BISACODYL SUPP (10 MG) 10 MG/SUPP.RECT SUPP.RECT RC ONE (13:00)
--- NOTE | 2018-03-25 13:01 | NUR ---
SUPPOSITORY ADMINISTERED. BURLESON D/C ---- BALLOON DEFLATED WITH 10CC. PATIENT TOLERATED WELL.
[2018-03-25] MEDS ORDERED: NITR-84 PO (13:07)
[2018-03-25] MEDS ORDERED: NA PHOS,M-B/NA PHOS,DI-BA 1 EA ENEMA RC PRN (15:00)
[2018-03-25] MEDS: CEFTRIAXONE 1 G in IV NS 0.9% 50 ML IV SCH (15:53)
[2018-03-25] MEDS: MOUTH KOTE MC SCH ×2 (15:57→15:58)
[2018-03-25 16:00] VITALS: BP 120/73
[2018-03-25] MEDS ORDERED: MOUTH KOTE MC SCH (17:00)
--- NOTE | 2018-03-25 17:45 | NUR ---
PATIENT IS NOT EATING HER DINNER. INSULIN HELD. DISCUSSED WITH FAMILY AT BEDSIDE
--- NOTE | 2018-03-25 18:16 | NUR ---
PATIENT'S DAUGHTER WAS ABLE TO FEED PATIENT. ADMINISTERING INSULIN
--- NOTE | 2018-03-25 19:20 | NUR ---
PATIENT IS UNABLE TO URINATE. SARAH BETH CHING AT 1PM. BLADDER SCAN COMPLETED, 147ML OF URINE. DR TAFOYA NOTIFIED. PER DR TAFOYA, JEANE PATIENT HOME.
--- NOTE | 2018-03-25 19:45 | NUR ---
RN CLOSING NOTES REPORT GAVE TO SANFORIZER NURSE. PATIENT IS IN BED, AWAKE. FAMILY AT BEDSIDE. NO SIGNS AND SYMPTOMS OF DISTRESS. BED IN LOW POSITION, LOCKED AND TWO SIDE RAILS ARE UP. CALL LIGHT WITH IN REACH FOR SAFETY. ALL NURSING CARE ANTICIPATED AND PROVIDED. PATIENT KEPT CLEAN, DRY AND SAFE. PATIENT DISCHARGE ORDER RECEIVED. AMBULANCE WILL INTERLOCKER PATIENT AT 9:45PM. ENDORSED TO BROOKLYN LEAHY
--- NOTE | 2018-03-25 19:45 | NUR ---
MS RN NOTE RECEIVED PATIENT FROM DAY SHIFT, PATIENT HAS DC ORDER TO HOME WITH FAMILY MEMBER PER DR TAFOYA'S ORDER. FAMILY SIGNED THE DISCHARGE PAPER AND WAITING FOR THE AMB[facility] TO COME AR [id number]. NO S/S OF RESPIRATORY, NO FACIAL GRIMACE NOTED. WILL F/U WITH DC FOR THIS PATIENT.
[2018-03-25 20:00] VITALS: BP 131/72
--- NOTE | 2018-03-25 22:56 | NUR ---
MS RN NOTE PATIENT DISCHARGED TO HOME WITH HER DAUGHTER, DC PAPER AND BELONGING LISTS SIGNED, DC PACKET GIVEN TO HER DAUGHTER. IV LINE AND ID BAND REMOVED. REPORT GIVEN TO EMT.
== END 2018-03-25 22:55 | disposition home health service (06) | DRG 559 ==
LOC: ER 20:58 → MED 23:29
PROVIDERS: ADMIT Nurse Practitioner Acute Care; ATTEND Nurse Practitioner Acute Care
PROC: 0SW9XJZ Revision of Synthetic Substitute in Right Hip Joint, External Approach (ICD-10-PCS; principal; 2018-03-22 13:55)
DX: T84.020A Dislocation of internal right hip prosthesis, initial encounter (principal); G93.40 Encephalopathy, unspecified; D68.69 Other thrombophilia; F05 Delirium due to known physiological condition; I48.91 Unspecified atrial fibrillation; E83.42 Hypomagnesemia; N39.0 Urinary tract infection, site not specified; W18.30XA Fall on same level, unspecified, initial encounter; E03.9 Hypothyroidism, unspecified; E11.9 Type 2 diabetes mellitus without complications; F03.90 Unspecified dementia, unspecified severity, without behavioral disturbance, psychotic disturbance, mood disturbance, and anxiety; I10 Essential (primary) hypertension; Z95.2 Presence of prosthetic heart valve; Z96.653 Presence of artificial knee joint, bilateral; Y79.2 Prosthetic and other implants, materials and accessory orthopedic devices associated with adverse incidents; M19.90 Unspecified osteoarthritis, unspecified site; Z79.84 Long term (current) use of oral hypoglycemic drugs; F29 Unspecified psychosis not due to a substance or known physiological condition; B96.20 Unspecified Escherichia coli [E. coli] as the cause of diseases classified elsewhere; Y83.8 Other surgical procedures as the cause of abnormal reaction of the patient, or of later complication, without mention of misadventure at the time of the procedure; Y92.009 Unspecified place in unspecified non-institutional (private) residence as the place of occurrence of the external cause
CPT/HCPCS: 36415; 70450-TC; 71045-TC; 72170-TC; 73501; 73552; 80048-TC; 80061-TC; 80076-TC; 81000-TC; 82962-TC; 83735-TC; 84100-TC; 84443-TC; 85025-TC; 85730-TC; 87086-TC; 87186-TC; 93307-TC; 94799-TC; 97116-TC; 97530-TC; A4216; A4606; J0360; J0696; J1815; J2270; J2405; J2704; J3475; J3490; J7030; J7040; L1830; Z7610

== ENCOUNTER 2018-07-05 18:03 | Emergency (ER) | payer MEDICARE, BC ==
[~2018-07-05] VITALS: Ht 167.6 cm; Wt 73.9 kg
[~2018-07-05 18:03] MED LIST: ASPI-605 PO; COZAR PO; METF500T6 PO; NITR-84 PO; [UNRECOGNIZED DRUG - OTHER] PO
--- NOTE | 2018-07-05 18:10 | NUR ---
AAOX3, [id number] FROM HOME c/o RIGHT HIP pain S/P fell d/t uneven ground. RR is even and unlabored with NAD noted. Skin is warm and dry. Placed on the monitor. Dr Jackson at for eval.
--- NOTE | 2018-07-05 18:25 | NUR ---
FLOR at BS.
[2018-07-05] MEDS ORDERED: FENTANYL PF 100MCG/2ML AMPUL IV ONE (18:30)
[2018-07-05] MEDS ORDERED: PROPOFOL 20 ML IV ONE (18:40)
--- NOTE | 2018-07-05 19:05 | NUR ---
Report given to BROOKLYN Kovacs for DOROTHY.
--- NOTE | 2018-07-05 19:38 | NUR ---
[facility] ETA 1 HOUR; [id number]
[2018-07-05 19:39] VITALS: BP 166/84
--- NOTE | 2018-07-05 19:40 | NUR ---
Patient discharged to home in stable condition. Written and verbal after care instructions given. Patient verbalizes understanding of instruction.IV removed. Catheter intact and site benign. Pressure and 4x4 applied to site. No bleeding noted. pt ambulatory with a steady gait VITAL SIGNS WITHIN NORMAL LIMITS.
[2018-07-05] MEDS ORDERED: PROPOFOL 200 MG/20 ML VIAL IV ONE (20:00)
== END 2018-07-05 19:41 | disposition home or self-care (01) ==
LOC: ER 18:07
DX: S73.004A Unspecified dislocation of right hip, initial encounter (principal); I10 Essential (primary) hypertension; E11.9 Type 2 diabetes mellitus without complications; I48.91 Unspecified atrial fibrillation; Z85.3 Personal history of malignant neoplasm of breast; Z96.653 Presence of artificial knee joint, bilateral; Z95.2 Presence of prosthetic heart valve; Z96.641 Presence of right artificial hip joint; Z88.6 Allergy status to analgesic agent; Z88.1 Allergy status to other antibiotic agents; Z79.82 Long term (current) use of aspirin; W01.0XXA Fall on same level from slipping, tripping and stumbling without subsequent striking against object, initial encounter; Y93.01 Activity, walking, marching and hiking; Y92.89 Other specified places as the place of occurrence of the external cause; Y99.8 Other external cause status
CPT/HCPCS: 27265; 72170 ×2; 99152; 99285; A4606; J2704; J7030; Z7610